=== PATIENT | female | born 1975 | race Caucasian/White ===

== ENCOUNTER 2018-03-22 13:00 | Emergency (ER) | payer OTHER ==
[2018-03-22] MEDS: MECLIZINE 12.5 MG TAB PO (15:47)
[2018-03-22 16:19] LABS: ADD MAN DIFF? NO
[2018-03-22 16:21] LABS: BASOPHIL # 0.1 10^3/ul (0.0-0.1); BASOPHILS % 0.5 % (0.0-2.0); EOSINOPHILS # 0.3 10^3/ul (0.0-0.5); EOSINOPHILS % 2.2 % (0.0-7.0); HEMATOCRIT 42.4 % (37.0-47.0); HEMOGLOBIN 14.2 g/dl (12.0-16.0); LYMPHOCYTES # 3.7 10^3/ul (0.8-2.9); LYMPHOCYTES % 28.5 % (15.0-51.0); MEAN CORPUSCULAR HEMOGLOBIN 29.3 pg (29.0-33.0); MEAN CORPUSCULAR HGB CONC 33.5 g/dl (32.0-37.0); MEAN CORPUSCULAR VOLUME 87.6 fl (82.0-101.0); MEAN PLATELET VOLUME 10.9 fl (7.4-10.4); MONOCYTES % 7.3 % (0.0-11.0); NEUTROPHILS % 61.2 % (39.0-77.0); PLATELET COUNT 277 10^3/UL (140-415); RED BLOOD COUNT 4.84 10^6/ul (4.20-5.40); RED CELL DISTRIBUTION WIDTH 13.5 % (11.5-14.5)
[2018-03-22 16:40] LABS: ANION GAP 16 (8-16); BLOOD UREA NITROGEN 10 mg/dl (7-20); CALCIUM 9.4 mg/dl (8.4-10.2); CARBON DIOXIDE 27 mmol/L (21-31); CHLORIDE 104 mmol/L (97-110); GLUCOSE 101 mg/dl (70-220); POTASSIUM 4.1 mmol/L (3.5-5.1); SODIUM 143 mmol/L (135-144)
[2018-03-22 16:54] LABS: TROPONIN-I < 0.012 ng/ml (0.00-0.12)
== END 2018-03-22 17:19 | disposition home or self-care (01) ==
LOC: FTE 13:00
DX: R42 Dizziness and giddiness (principal)
CPT/HCPCS: 80048; 81025; 84484; 85025; 93005; 99284-25

== ENCOUNTER 2018-11-16 13:47 | Emergency (ER) | payer OTHER ==
[2018-11-16] MEDS ORDERED: ONDANSETRON (ODT) 4 MG TAB ODT (14:05)
[2018-11-16 14:10] LABS: URINE BLOOD (Dip) POC 2+ (NEGATIVE); URINE GLUCOSE (Dip) POC Negative (NEGATIVE); URINE KETONES (Dip) POC Negative (NEGATIVE); URINE LEUKOCYTE EST (Dip) POC 1+ (NEGATIVE); URINE NITRITE (Dip) POC Negative (NEGATIVE); URINE TOTAL PROTEIN POC Negative (NEGATIVE)
[2018-11-16] MEDS: METOCLOPRAMIDE 10 MG INJ IV (14:15)
[2018-11-16] MEDS: SOD CHLORIDE 0.9% 1,000 ML IV (14:15)
[2018-11-16] MEDS: HYDROCODONE/APAP (5/325) TAB PO ×2 (14:16→14:20)
[2018-11-16 14:37] LABS: ADD MAN DIFF? NO
[2018-11-16] MEDS: KETOROLAC 30 MG INJ IV (14:39)
[2018-11-16 14:40] LABS: WHITE BLOOD COUNT 15.1 10^3/ul (4.8-10.8)
[2018-11-16 14:40] LABS: BASOPHILS % 0.3 % (0.0-2.0); EOSINOPHILS # 0.1 10^3/ul (0.0-0.5); EOSINOPHILS % 0.7 % (0.0-7.0); HEMATOCRIT 42.6 % (37.0-47.0); HEMOGLOBIN 14.5 g/dl (12.0-16.0); LYMPHOCYTES # 2.6 10^3/ul (0.8-2.9); MEAN CORPUSCULAR HEMOGLOBIN 29.7 pg (29.0-33.0); MEAN CORPUSCULAR VOLUME 87.1 fl (82.0-101.0); MEAN PLATELET VOLUME 10.2 fl (7.4-10.4); MONOCYTE # 0.8 10^3/ul (0.3-0.9); MONOCYTES % 5.1 % (0.0-11.0); NEUTROPHIL # 11.6 10^3/ul (1.6-7.5); NEUTROPHILS % 76.2 % (39.0-77.0); PLATELET COUNT 346 10^3/UL (140-415); RED BLOOD COUNT 4.89 10^6/ul (4.20-5.40); RED CELL DISTRIBUTION WIDTH 13.1 % (11.5-14.5)
[2018-11-16 14:57] LABS: ANION GAP 11 (5-13); CALCIUM 9.7 mg/dl (8.4-10.2); CARBON DIOXIDE 27 mmol/L (21-31); CHLORIDE 105 mmol/L (97-110); Estimated GFR > 60 mL/min (>60); GLUCOSE 101 mg/dl (70-220); POTASSIUM 3.9 mmol/L (3.5-5.1); SODIUM 143 mmol/L (135-144)
[2018-11-16 14:59] LABS: INR 0.86; PROTIME 11.8 Sec (11.9-14.9); PT RATIO 0.9
[2018-11-16 15:00] LABS: PARTIAL THROMBOPLASTIN TIME 35.8 Sec (23.0-35.0)
[2018-11-16 15:35] LABS: BLOOD UREA NITROGEN 7 mg/dl (7-20); CREATININE 0.35 mg/dl (0.44-1.00)
[2018-11-16] MEDS: CEPHALEXIN 500 MG CAP PO (15:43)
== END 2018-11-16 16:20 | disposition home or self-care (01) ==
LOC: FTE 13:47
DX: N30.00 Acute cystitis without hematuria (principal)
CPT/HCPCS: 36415; 70450; 80048; 81003; 81025; 85025; 85610; 85730; 96361; 96374; 96375; 99285-25